=== PATIENT | male | born 1955 | race Two or more races ===

== ENCOUNTER 2018-09-24 13:27 | Inpatient (IN) | payer OTHER ==
--- NOTE | 2018-09-24 14:40 | HP ---
CIWA Score Nausea/Vomitin-Mild Nausea/No Vomiting Muscle Tremors: 4-Moderate,w/Arms Extend Anxiety: 4-Mod. Anxious/Guarded Agitation: 4-Moderately Restless Paroxysmal Sweats: 3 Orientation: 0-Oriented Tacttile Disturbances: 0-None Auditory Disturbances: 0-None Visual Disturbances: 0-None Headache: 0-None Present CIWA-Ar Total Score: 16 - Admission Criteria OASAS Guidelines: Admission for Medically Managed Detox: Requires at least one of the followin. CIWA greater than 12 2. Seizures within the past 24 hours 3. Delirium tremens within the past 24 hours 4. Hallucinations within the past 24 hours 5. Acute intervention needed for co occurring medical disorder 6. Acute intervention needed for co occurring psychiatric disorder 7. Severe withdrawal that cannot be handled at a lower level of care (continued vomiting, continued diarrhea, abnormal vital signs) requiring intravenous medication and/or fluids 8. Admission ROS [facility] Chief Complaint: I want to get clean and sober. Allergies/Adverse Reactions: Allergies Allergy/AdvReac Type Severity Reaction Status Date / Time No Known Allergies Allergy Verified 09/24/18 14:20 History of Present Illness: Pt is a a 63yr old male with a history of alcohol dependence seeking detox for treatment. Pt has a long history of sobriety since 2007 and recently lost family members in a tragic accident and went on a binge. Pt is now ready for detox and lead a sober life. Exam Limitations: No Limitations - Ebola screening Have you traveled outside of the country in the last 21 days: No Have you had contact with anyone from an Ebola affected area: No Have you been sick,other than usual withdrawal symptoms: No Do you have a fever: No - Review of Systems Constitutional: Chills, Diaphoresis, Night Sweats, Changes in sleep, Unintentional Wgt. Loss EENT: reports: Tearing, Hearing Loss (both ears assess; wax noted. will order deberox), Nose Congestion Respiratory: reports: No Symptoms reported Cardiac: reports: No Symptoms Reported GI: reports: Poor Appetite, Poor Fluid Intake, Indigestion : reports: No Symptoms Reported Musculoskeletal: reports: Back Pain, Joint Pain Integumentary: reports: Flushing, Sweating Neuro: reports: Tingling, Tremors Endocrine: reports: Excessive Sweating, Flushing, Intolerance to Cold, Intolerance to Heat Hematology: reports: No Symptoms Reported Psychiatric: reports: No Sypmtoms Reported, Judgement Intact, Orientated x3, Agitated, Anxious Other Systems: Reviewed and Negative Patient History - Patient Medical History Hx Anemia: No Hx Chronic Obstructive Pulmonary Disease (COPD): No Hx Cancer: No Hx Cardiac Disorders: No Hx Congestive Heart Failure: No Hx Hypertension: Yes Hx Hypercholesterolemia: Yes Hx Pacemaker: No HX Cerebrovascular Accident: No Hx Seizures: No Hx Dementia: No Hx Diabetes: No Hx Gastrointestinal Disorders: Yes (GERD) Hx Liver Disease: No Hx Genitourinary Disorders: No Hx Sexually Transmitted Disorders: No Hx Renal Disease (ESRD): No Hx Thyroid Disease: No Hx Human Immunodeficiency Virus (HIV): No (pt denies) Hx Hepatitis C: No (pt denies) Hx Depression: Yes Hx Suicide Attempt: No (pt denies any attempts. ) Hx Bipolar Disorder: No Hx Schizophrenia: No - Patient Surgical History Hx Orthopedic Surgery: Yes (right hip replacement 2013/jaw fx 1979) - PPD History Previous Implant?: Yes Documented Results: Negative w/o proof Implanted On Prior [facility] Admission?: No PPD to be Administered?: Yes - Reproductive History Patient is a Female of Child Bearing Age (11 -55 yrs old): No - Smoking Cessation Smoking history: Former smoker Have you smoked in the past 12 months: No Hx Chewing Tobacco Use: No Initiated information on smoking cessation: No - Substance & Tx. History Hx Alcohol Use: Yes Hx Substance Use: Yes Substance Use Type: Alcohol, Cocaine Hx Substance Use Treatment: Yes (last detox [facility] 3yrs ago) - Substances abused Alcohol Substance route: Oral Frequency: Daily Amount used: 1/5 vodka Age of first use: 26 Date of last use: 09/24/18 Cocaine Substance route: Smoking Frequency: 3-6 times per week Amount used: 1/2 gram Age of first use: 31 Date of last use: 09/23/18 Family Disease History - Family Disease History Family Disease History: Other: Father (), Mother (), Son ( ) Admission Physical Exam BHS - Vital Signs Vital Signs: Vital Signs - 24 hr 09/24/18 14:17 Temperature 98.2 F Pulse Rate 74 Respiratory 18 Rate Blood Pressure 131/77 - Physical General Appearance: Yes: Appropriately Dressed, Moderate Distress, Tremorous, Irritable, Sweating, Anxious HEENTM: Yes: Hearing grossly Normal, Normal Voice, Nasal Congestion, Rhinorrhea Respiratory: Yes: Lungs Clear, Normal Breath Sounds, No Respiratory Distress Neck: Yes: No masses,lesions,Nodules Breast: Yes: Within Normal Limits Cardiology: Yes: Regular Rhythm, Regular Rate, S1, S2 Abdominal: Yes: Normal Bowel Sounds Genitourinary: Yes: Within Normal Limits Back: Yes: Normal Inspection Musculoskeletal: Yes: full range of Motion, Back pain Extremities: Yes: Normal Capillary Refill, Normal Inspection, Non-Tender, Tremors Neurological: Yes: Fully Oriented, Alert, Normal Response Integumentary: Yes: Normal Color, Diaphoresis Lymphatic: Yes: Within Normal Limits - Diagnostic (1) Alcohol dependence with uncomplicated withdrawal Current Visit: Yes Status: Chronic (2) Nicotine dependence Current Visit: Yes Status: Chronic Qualifiers: Nicotine product type: cigarettes Substance use status: uncomplicated Qualified Code(s): F17.210 - Nicotine dependence, cigarettes, uncomplicated (3) Hypertension Current Visit: Yes Status: Chronic Qualifiers: Hypertension type: essential hypertension Qualified Code(s): I10 - Essential (primary) hypertension (4) Hypercholesterolemia Current Visit: Yes Status: Chronic (5) Wax in ear Current Visit: Yes Status: Chronic Cleared for Admission S - Detox or Rehab S Level of Care: Medically Managed Detox Regimen/Protocol: Librium Inpatient Rehab Admission - Rehab Decision to Admit Inpatient rehab admission?: No
[2018-09-24] MEDS ORDERED: traZODone HCL 50 MG TABLET (FP) PO PRN (14:58)
[2018-09-24] MEDS ORDERED: IBUPROFEN 400 MG TABLET (FP) PO PRN (14:58)
[2018-09-24] MEDS ORDERED: MELATONIN 5 MG TABLETS PO PRN (14:58)
[2018-09-24] MEDS ORDERED: ONDANSETRON *ODT* 4 MG TABLET SL PRN (14:58)
[2018-09-24] MEDS ORDERED: MAG HYDROX/AL HYDROX/SIMETH 30 ML UNIT-DOSE CUP PO PRN (14:58)
[2018-09-24] MEDS ORDERED: ACETAMINOPHEN 325 MG TABLET (FP) PO PRN ×2 (14:58)
[2018-09-24] MEDS ORDERED: MAGNESIUM HYDROX 2400MG/30ML ORAL SUSPENSION 30 ML CUP PO PRN (14:58)
[2018-09-24] MEDS ORDERED: MENTHOL/PHENOL 1 EACH UD MM PRN (14:58)
[2018-09-24] MEDS ORDERED: chlordiazePOXIDE HCL 25 MG CAPSULE PO PRN (14:58)
[2018-09-24] MEDS ORDERED: hydrOXYzine PAMOATE 25 MG CAPSULE (FP) PO PRN (14:58)
[2018-09-24] MEDS ORDERED: MAGNESIUM CITRATE 300 ML BOTTLE PO PRN (14:58)
[2018-09-24] MEDS ORDERED: DICYCLOMINE HCL 10 MG CAPSULE PO PRN (14:58)
[2018-09-24] MEDS ORDERED: BISMUTH SUBSALICYLATE 262 MG/15 ML BTL PO PRN (14:58)
[2018-09-24 17:06] LABS: HEMATOCRIT 39.1 % (35.4-49); HEMOGLOBIN 13.2 GM/dL (11.7-16.9); MCH 34.6 pg (25.7-33.7); MCHC 33.8 g/dl (32.0-35.9); MEAN CELL VOLUME 102.4 fl (80-96); MEAN PLT VOLUME 8.8 fl (7.5-11.1); PLATELET COUNT 284 K/MM3 (134-434); RBC 3.81 M/mm3 (4.00-5.60); WHITE BLOOD COUNT 7.9 K/mm3 (4.0-10.0)
[2018-09-24 17:10] LABS: ALBUMIN 3.9 g/dl (3.4-5.0); ALK PHOS 101 U/L (45-117); BILIRUBIN,TOTAL 0.6 mg/dL (0.2-1); BLOOD UREA NITROGEN 10 mg/dL (7-18); CALCIUM 8.9 mg/dL (8.5-10.1); CHLORIDE 105 mmol/L (98-107); CO2 27 mmol/L (21-32); CREATININE 0.8 mg/dL (0.55-1.3); GLUCOSE,RANDOM 109 mg/dL (74-106); SGOT/AST 52 U/L (15-37); SGPT/ALT 40 U/L (13-61); SODIUM 143 mmol/L (136-145); TOT PROT 7.4 g/dl (6.4-8.2)
[2018-09-24 17:12] LABS: ANION GAP 10 MMOL/L (8-16)
[2018-09-24] MEDS: chlordiazePOXIDE HCL 25 MG CAPSULE PO SCH ×2 (17:33→22:20)
[2018-09-24] MEDS: ATORVASTATIN CA 10 MG TABLET (FP) PO SCH (22:20)
[2018-09-24] MEDS: THIAMINE HCL 100 MG TABLET (FP) PO SCH (22:20)
[2018-09-25] MEDS: chlordiazePOXIDE HCL 25 MG CAPSULE PO SCH ×4 (05:06→22:11)
[2018-09-25] MEDS: PANTOPRAZOLE 20 MG TABLET (FP) PO SCH (10:10)
[2018-09-25] MEDS: PRENATAL VITAMINS W/ FOLIC ACID TABLET (FP) PO SCH (10:10)
[2018-09-25] MEDS: HYDROCHLOROTHIAZIDE 25 MG TABLET (FP) PO SCH (10:11)
[2018-09-25] MEDS: BACLOFEN 10 MG TABLET (FP) PO PRN ×2 (10:13→17:53)
--- NOTE | 2018-09-25 11:50 | EKG ---
Test Reason : Blood Pressure : / mmHG Vent. Rate : 075 BPM Atrial Rate : 075 BPM P-R Int : 210 ms QRS Dur : 082 ms QT Int : 402 ms P-R-T Axes : 069 010 039 degrees QTc Int : 448 ms SINUS RHYTHM WITH 1ST DEGREE A-V BLOCK OTHERWISE NORMAL ECG NO PREVIOUS ECGS AVAILABLE Confirmed by ROBERT SANCHEZ, DEITA ([id number]) on 09/25/2018 11:50:09 AM Referred By: Confirmed By:EDITA JONES MD
--- NOTE | 2018-09-25 14:19 | CONSULT ---
[facility] Psychiatric Consult - Data Date of interview: 09/25/18 Admission source: [facility] Identifying data: Patient is a 63 year old single male, father of two, unemployed, homeless, and is supported by [facility]. This is patient's first admission to detox at [facility]. Patient admitted to for alcohol dependence. Substance Abuse History: Smoking Cessation. Smoking history: Former smoker. Have you smoked in the past 12 months: No. Hx Chewing Tobacco Use: No. Initiated information on smoking cessation: No. - Substance & Tx. History. Hx Alcohol Use: Yes. Hx Substance Use: Yes. Substance Use Type: Alcohol, Cocaine. Hx Substance Use Treatment: Yes (last detox [facility] 3yrs ago). - Substances abused. Alcohol. Substance route: Oral. Frequency: Daily. Amount used: 1/5 vodka. Age of first use: 26. Date of last use: 09/24/18. Cocaine. Substance route: Smoking. Frequency: 3-6 times per week. Amount used : 1/2 gram. Age of first use: 31. Date of last use: 09/23/18 Medical History: GERD, right hip replacement 2013/jaw fx 1979) Psychiatric History: Patient denies h/o psychiatric hospitalization, outpatient care and suicide attempt. At present he reports stable mood but is experiencing difficulty sleeping. Physical/Sexual Abuse/Trauma History: denies. Mental Status Exam - Mental Status Exam Alert and Oriented to: Time, Place, Person Cognitive Function: Good Patient Appearance: Well Groomed Mood: Euthymic Affect: Appropriate Patient Behavior: Cooperative Speech Pattern: Appropriate Voice Loudness: Moderately Soft/Quiet Thought Process: Goal Oriented Thought Disorder: Not Present Hallucinations: Denies Suicidal Ideation: Denies Homicidal Ideation: Denies Insight/Judgement: Poor Sleep: Poorly Appetite: Fair Muscle strength/Tone: Normal Gait/Station: Normal Psychiatric Findings - Problem List ([place] 1, 2,3) (1) Alcohol dependence with uncomplicated withdrawal Current Visit: Yes Status: Acute (2) Insomnia Current Visit: Yes Status: Acute - Initial Treatment Plan Initial Treatment Plan: Psychoeducation provided. Detoxification in progress. Will increase trazodone 50mg to 75mg HS prn for insomnia.
[2018-09-25] MEDS ORDERED: diphenhydrAMINE HCL 50 MG CAPSULE PO ONE (15:12)
--- NOTE | 2018-09-25 15:20 | PN ---
[facility] CIWA - CIWA Score Nausea/Vomitin-No Nausea/No Vomiting Muscle Tremors: 3 Anxiety: 3 Agitation: 2 Paroxysmal Sweats: No Perspiration Orientation: 0-Oriented Tacttile Disturbances: 3-Moderate Itch/Numb/Burn Auditory Disturbances: 2-Mild Harshness/Frighten Visual Disturbances: 0-None Headache: 0-None Present CIWA-Ar Total Score: 13 BHS Progress Note (SOAP) Subjective: Body Aches, Anxious, Tremors. Objective: PATIENT A & O X 3, OBSERVED AMBULATING ON UNIT. IN NO ACUTE DISTRESS. 09/25/18 15:15 Vital Signs Temperature 98.6 F 09/25/18 13:43 Pulse Rate 73 09/25/18 13:43 Respiratory Rate 16 09/25/18 13:43 Blood Pressure 110/67 09/25/18 13:43 O2 Sat by Pulse Oximetry (%) Laboratory Tests 09/24/18 09/24/18 09/24/18 15:00 15:00 15:00 WBC 7.9 RBC 3.81 L Hgb 13.2 Hct 39.1 MCV 102.4 H MCH 34.6 H MCHC 33.8 RDW 14.0 Plt Count 284 MPV 8.8 Sodium 143 Potassium 3.0 L Chloride 105 Carbon Dioxide 27 Anion Gap 10 BUN 10 Creatinine 0.8 Creat Clearance w eGFR 97.95 Random Glucose 109 H Calcium 8.9 Total Bilirubin 0.6 AST 52 H ALT 40 Alkaline Phosphatase 101 Total Protein 7.4 Albumin 3.9 RPR Titer Nonreactive LABS NOTED. PATIENT REPORTS ITCHING AFFECTING BILATERAL LEGS AND GROIN AREA FOR LAST FEW WEEKS. PATIENT DENIES ANY KNOWN HISTORY OF RECENT CONTACT WITH ANY UNUSUAL SUBSTANCES / SURFACES. PATIENT DENIES ANY HISTORY OF SIMILAR OCCURRENCE. MULTIPLE PAPULAR, NON-ERYTHEMATOUS BUMPS NOTED ON BILATERAL LEGS. NO UNUSUAL DISCHARGE NOTED AT AFFECTED SITES. 09/25/18 15:16 Assessment: 09/25/18 15:15 WITHDRAWAL SYMPTOMS. URTICARIA (POSSIBLE). HYPOKALEMIA. 09/25/18 15:18 Plan: CONTINUE DETOX. INCREASE DAILY PO FLUID INTAKE. BENADRYL, 50 MG PO X 1 DOSE ORDERED FOR RELIEF OF PRURITUS. BENADRYL, 25 MG PO PRN FOR SUBSEQUENT TREATMENT OF ITCHING. BENADRYL TOPICAL GEL ALSO ORDERED FOR AFFECTED AREAS. K-DUR, 40 MEQ PO X 1 NOW, THEN 20 MEQ PO BID STARTING TOMORROW. REPEAT K LEVEL ON 09/27/2018.
[2018-09-25] MEDS ORDERED: POTASSIUM CHLORIDE TABS 20 MEQ TABLET.ER (FP) PO ONE (15:21)
[2018-09-25] MEDS ORDERED: diphenhydrAMINE HCL 25 MG CAPSULE (FP) PO ONE (16:01)
[2018-09-25] MEDS: ATORVASTATIN CA 10 MG TABLET (FP) PO SCH (22:11)
[2018-09-25] MEDS: traZODone HCL 50 MG TABLET (FP) PO PRN (22:11)
[2018-09-25] MEDS: GABAPENTIN 100 MG CAPSULE (FP) PO SCH (22:12)
[2018-09-25] MEDS: THIAMINE HCL 100 MG TABLET (FP) PO SCH (22:12)
[2018-09-25] MEDS: diphenhydrAMINE HCL 25 MG CAPSULE (FP) PO PRN (22:37)
[2018-09-26] MEDS: chlordiazePOXIDE HCL 25 MG CAPSULE PO SCH ×2 (05:10→10:33)
[2018-09-26] MEDS: GABAPENTIN 100 MG CAPSULE (FP) PO SCH ×3 (05:10→22:19)
[2018-09-26] MEDS: PRENATAL VITAMINS W/ FOLIC ACID TABLET (FP) PO SCH (10:33)
[2018-09-26] MEDS: POTASSIUM CHLORIDE TABS 20 MEQ TABLET.ER (FP) PO SCH ×2 (10:33→17:29)
[2018-09-26] MEDS: HYDROCHLOROTHIAZIDE 25 MG TABLET (FP) PO SCH (10:34)
[2018-09-26] MEDS: PANTOPRAZOLE 20 MG TABLET (FP) PO SCH (10:34)
[2018-09-26] MEDS: diphenhydrAMINE HCL 25 MG CAPSULE (FP) PO PRN ×2 (10:37→17:30)
[2018-09-26] MEDS: LIDOCAINE 5% TOPICAL PATCH TP SCH (11:05)
[2018-09-26] MEDS: NAPROXEN 375 MG TABLET (FP) PO PRN (13:55)
[2018-09-26] MEDS: CARBAMIDE PEROXIDE 6.5% OTIC 15 ML BOTTLE AU SCH ×2 (14:14→22:20)
--- NOTE | 2018-09-26 14:47 | PN ---
S CIWA - CIWA Score Nausea/Vomitin-No Nausea/No Vomiting Muscle Tremors: None Anxiety: 2 Agitation: 0-Normal Activity Paroxysmal Sweats: No Perspiration Orientation: 0-Oriented Tacttile Disturbances: 2-Mild Itch/Numbness/Burn Auditory Disturbances: 1-Very Mild Visual Disturbances: 3-Moderate Sensitivity Headache: 0-None Present CIWA-Ar Total Score: 8 BHS Progress Note (SOAP) Subjective: Body Aches, Interrupted Sleep. Objective: PATIENT A & O X 3, OBSERVED AMBULATING ON UNIT. IN NO ACUTE DISTRESS. 09/26/18 14:44 Vital Signs Temperature 97.4 F L 09/26/18 13:31 Pulse Rate 70 09/26/18 13:31 Respiratory Rate 16 09/26/18 13:31 Blood Pressure 110/66 09/26/18 13:31 O2 Sat by Pulse Oximetry (%) Laboratory Tests 09/24/18 09/24/18 09/24/18 15:00 15:00 15:00 WBC 7.9 RBC 3.81 L Hgb 13.2 Hct 39.1 MCV 102.4 H MCH 34.6 H MCHC 33.8 RDW 14.0 Plt Count 284 MPV 8.8 Sodium 143 Potassium 3.0 L Chloride 105 Carbon Dioxide 27 Anion Gap 10 BUN 10 Creatinine 0.8 Creat Clearance w eGFR 97.95 Random Glucose 109 H Calcium 8.9 Total Bilirubin 0.6 AST 52 H ALT 40 Alkaline Phosphatase 101 Total Protein 7.4 Albumin 3.9 RPR Titer Nonreactive LABS NOTED. Assessment: 09/26/18 14:45 WITHDRAWAL SYMPTOMS. Plan: CONTINUE DETOX. INCREASE DAILY PO FLUID INTAKE. CONTINUE K-DUR. REPEAT K LEVEL TOMORROW AM.
[2018-09-26] MEDS ORDERED: chlordiazePOXIDE HCL 10 MG CAPSULE PO PRN (17:00)
[2018-09-26] MEDS: chlordiazePOXIDE HCL 10 MG CAPSULE PO SCH ×2 (17:28→22:20)
[2018-09-26] MEDS: TIZANIDINE HCL 4 MG TABLET PO PRN (22:18)
[2018-09-26] MEDS: traZODone HCL 50 MG TABLET (FP) PO PRN (22:19)
[2018-09-26] MEDS: LIDOCAINE PATCH REMOVAL MC SCH (22:20)
[2018-09-26] MEDS: THIAMINE HCL 100 MG TABLET (FP) PO SCH (22:20)
[2018-09-26] MEDS: ATORVASTATIN CA 10 MG TABLET (FP) PO SCH (22:20)
[2018-09-27] MEDS: GABAPENTIN 100 MG CAPSULE (FP) PO SCH ×3 (05:29→22:12)
[2018-09-27] MEDS: chlordiazePOXIDE HCL 10 MG CAPSULE PO SCH ×3 (05:29→17:28)
[2018-09-27] MEDS: LIDOCAINE 5% TOPICAL PATCH TP SCH ×2 (10:09→13:00)
[2018-09-27] MEDS: POTASSIUM CHLORIDE TABS 20 MEQ TABLET.ER (FP) PO SCH (10:10)
[2018-09-27] MEDS: PRENATAL VITAMINS W/ FOLIC ACID TABLET (FP) PO SCH (10:10)
[2018-09-27] MEDS: CARBAMIDE PEROXIDE 6.5% OTIC 15 ML BOTTLE AU SCH ×2 (10:10→22:13)
[2018-09-27] MEDS: PANTOPRAZOLE 20 MG TABLET (FP) PO SCH (10:10)
[2018-09-27] MEDS: HYDROCHLOROTHIAZIDE 25 MG TABLET (FP) PO SCH (10:10)
[2018-09-27] MEDS: diphenhydrAMINE HCL 25 MG CAPSULE (FP) PO PRN ×3 (10:11→23:26)
[2018-09-27] MEDS: TIZANIDINE HCL 4 MG TABLET PO PRN ×2 (10:12→22:18)
--- NOTE | 2018-09-27 13:34 | PN ---
BHS Progress Note (SOAP) Subjective: Anxious, Body Aches. Objective: PATIENT A & O X 3, OBSERVED AMBULATING ON UNIT. IN NO ACUTE DISTRESS. 09/27/18 13:29 Vital Signs Temperature 97.6 F 09/27/18 13:10 Pulse Rate 55 L 09/27/18 13:10 Respiratory Rate 18 09/27/18 13:10 Blood Pressure 95/64 09/27/18 13:10 O2 Sat by Pulse Oximetry (%) Laboratory Tests 09/24/18 09/24/18 09/24/18 15:00 15:00 15:00 WBC 7.9 RBC 3.81 L Hgb 13.2 Hct 39.1 MCV 102.4 H MCH 34.6 H MCHC 33.8 RDW 14.0 Plt Count 284 MPV 8.8 Sodium 143 Potassium 3.0 L Chloride 105 Carbon Dioxide 27 Anion Gap 10 BUN 10 Creatinine 0.8 Creat Clearance w eGFR 97.95 Random Glucose 109 H Calcium 8.9 Total Bilirubin 0.6 AST 52 H ALT 40 Alkaline Phosphatase 101 Total Protein 7.4 Albumin 3.9 RPR Titer Nonreactive 09/27/18 10:15 WBC RBC Hgb Hct MCV MCH MCHC RDW Plt Count MPV Sodium Potassium 4.1 Chloride Carbon Dioxide Anion Gap BUN Creatinine Creat Clearance w eGFR Random Glucose Calcium Total Bilirubin AST ALT Alkaline Phosphatase Total Protein Albumin RPR Titer LABS NOTED. RESULT OF REPEAT K LEVEL NOTED. K LEVEL NOW NOTED TO BE WITHIN NORMAL RANGE. D/C K-DUR. Assessment: 09/27/18 13:30 WITHDRAWAL SYMPTOMS. Plan: CONTINUE DETOX. PRN TIZANIDINE PO FOR BODY ACHES / MUSCLE SPASMS. LIDODERM PATCHES FOR LEFT KNEE AND FOR LOWER BACK AREA.
[2018-09-27] MEDS ORDERED: LIDOCAINE PATCH REMOVAL MC SCH (22:00)
[2018-09-27] MEDS: ATORVASTATIN CA 10 MG TABLET (FP) PO SCH (22:12)
[2018-09-27] MEDS: THIAMINE HCL 100 MG TABLET (FP) PO SCH (22:12)
[2018-09-27] MEDS: LIDOCAINE PATCH REMOVAL MC SCH (22:13)
[2018-09-27] MEDS: traZODone HCL 50 MG TABLET (FP) PO PRN (22:16)
[2018-09-27] MEDS: NAPROXEN 375 MG TABLET (FP) PO PRN (22:17)
[2018-09-28] MEDS: chlordiazePOXIDE HCL 10 MG CAPSULE PO SCH (05:52)
[2018-09-28] MEDS: GABAPENTIN 100 MG CAPSULE (FP) PO SCH (05:52)
[2018-09-28 09:26] VITALS: BP 98/61; PULSE 67; TEMP 96.1
--- NOTE | 2018-09-28 09:48 | DS ---
[facility] Detox Discharge Summary Admission Date: 09/24/18 Discharge Date: 09/28/18 - History Present History: Alcohol Dependence Additional Comments: 63 years old male admitted on 09/24/18 for alcohol withdrawal stabilization completed alcohol detox regimen [facility] Pertinent Past History: keep medication list in wallet update medication list when change medication bring in medication list and lab report to follow up appointment medication adherence - Physical Exam Results Vital Signs: Vital Signs Temperature 96.1 F L 09/28/18 09:24 Pulse Rate 67 09/28/18 09:24 Respiratory Rate 18 09/28/18 09:24 Blood Pressure 98/61 09/28/18 09:24 O2 Sat by Pulse Oximetry (%) Pertinent Admission Physical Exam Findings: alcohol withdrawal sx Laboratory Last Values WBC 7.9 K/mm3 (4.0-10.0) 09/24/18 15:00 RBC 3.81 M/mm3 (4.00-5.60) L 09/24/18 15:00 Hgb 13.2 GM/dL (11.7-16.9) 09/24/18 15:00 Hct 39.1 % (35.4-49) 09/24/18 15:00 MCV 102.4 fl (80-96) H 09/24/18 15:00 MCH 34.6 pg (25.7-33.7) H 09/24/18 15:00 MCHC 33.8 g/dl (32.0-35.9) 09/24/18 15:00 RDW 14.0 % (11.9-15.9) 09/24/18 15:00 Plt Count 284 K/MM3 (134-434) 09/24/18 15:00 MPV 8.8 fl (7.5-11.1) 09/24/18 15:00 Sodium 143 mmol/L (136-145) 09/24/18 15:00 Potassium 4.1 mmol/L (3.5-5.1) 09/27/18 10:15 Chloride 105 mmol/L (98-107) 09/24/18 15:00 Carbon Dioxide 27 mmol/L (21-32) 09/24/18 15:00 Anion Gap 10 MMOL/L (8-16) 09/24/18 15:00 BUN 10 mg/dL (7-18) 09/24/18 15:00 Creatinine 0.8 mg/dL (0.55-1.3) 09/24/18 15:00 Creat Clearance w eGFR 97.95 (>60) 09/24/18 15:00 Random Glucose 109 mg/dL (74-106) H 09/24/18 15:00 Calcium 8.9 mg/dL (8.5-10.1) 09/24/18 15:00 Total Bilirubin 0.6 mg/dL (0.2-1) 09/24/18 15:00 AST 52 U/L (15-37) H 09/24/18 15:00 ALT 40 U/L (13-61) 09/24/18 15:00 Alkaline Phosphatase 101 U/L (45-117) 09/24/18 15:00 Total Protein 7.4 g/dl (6.4-8.2) 09/24/18 15:00 Albumin 3.9 g/dl (3.4-5.0) 09/24/18 15:00 RPR Titer Nonreactive (NONREACTIVE) 09/24/18 15:00 lab noted - Treatment Hospital Course: Detox Protocol Followed, Detoxed Safely, Responded well, Discharged Condition Good, Rehab Referral Accepted Patient has Accepted a Rehab Referral to: [facility] - Medication Discharge Medications: Ambulatory Orders Atorvastatin Calcium [Lipitor] 10 mg PO DAILY 09/24/18 Diphenhydramine HCl [Benadryl Capsule -] 25 mg PO Q6H 09/24/18 Gabapentin [Neurontin -] 100 mg PO Q8H 09/24/18 Hydrochlorothiazide 25 mg PO DAILY 09/24/18 Pantoprazole Sodium [Protonix -] 20 mg PO DAILY 09/24/18 Tizanidine HCl 2 mg PO PRN 09/24/18 - Diagnosis (1) Alcohol dependence with uncomplicated withdrawal Current Visit: Yes Status: Acute (2) Hypercholesterolemia Current Visit: Yes Status: Chronic (3) Hypertension Current Visit: Yes Status: Chronic Qualifiers: Hypertension type: essential hypertension Qualified Code(s): I10 - Essential (primary) hypertension (4) Nicotine dependence Current Visit: Yes Status: Acute Qualifiers: Nicotine product type: cigarettes Substance use status: in withdrawal Qualified Code(s): F17.213 - Nicotine dependence, cigarettes, with withdrawal - AMA Did Patient Leave Against Medical Advice: No
[2018-09-28] MEDS: HYDROCHLOROTHIAZIDE 25 MG TABLET (FP) PO SCH (10:07)
[2018-09-28] MEDS: LIDOCAINE 5% TOPICAL PATCH TP SCH ×2 (10:07)
[2018-09-28] MEDS: PRENATAL VITAMINS W/ FOLIC ACID TABLET (FP) PO SCH (10:07)
[2018-09-28] MEDS: CARBAMIDE PEROXIDE 6.5% OTIC 15 ML BOTTLE AU SCH (10:08)
== END 2018-09-28 12:50 | disposition home or self-care (01) | DRG 774 ==
LOC: YASAS 13:27 → Y3N 15:13
PROVIDERS: ADMIT Surgery; ATTEND Surgery
PROC: HZ2ZZZZ Detoxification Services for Substance Abuse Treatment (ICD-10-PCS; principal; 2018-09-24)
DX: F10.230 Alcohol dependence with withdrawal, uncomplicated (principal); F14.10 Cocaine abuse, uncomplicated; F17.210 Nicotine dependence, cigarettes, uncomplicated; I10 Essential (primary) hypertension; E78.00 Pure hypercholesterolemia, unspecified; E87.6 Hypokalemia; H61.23 Impacted cerumen, bilateral; Z96.641 Presence of right artificial hip joint
CPT/HCPCS: 36415; 80053; 84132; 85027; 86593; 93005; 93010; J0475

== ENCOUNTER 2019-05-25 13:43 | Inpatient (IN) | payer OTHER ==
[2019-05-25 15:51] VITALS: BMI 26.4
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
--- NOTE | 2019-05-25 17:26 | PN ---
Teaching Attending Note Name of Resident: Yenny Romero ATTENDING PHYSICIAN STATEMENT I saw and evaluated the patient. I reviewed the resident's note and discussed the case with the resident. I agree with the resident's findings and plan as documented. SUBJECTIVE: 64 yo here for AUD. Last here 6 months ago completed detox. Pt states he relapsed Drinks about 1 pint/day. 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 Says he is tired and wants to be sober. LIBAN-0.086, Utox- pos for cocaine OBJECTIVE: Vital Signs - 24 hr 05/25/19 15:45 Temperature 97.0 F L Pulse Rate 75 Respiratory 20 Rate Blood Pressure 101/61 tremulous alert and oriented ASSESSMENT AND PLAN: AUD- benzo based detox protocol
[2019-05-25] MEDS ORDERED: BISMUTH SUBSALICYLATE 524 MG/30 ML UD PO PRN (17:42)
[2019-05-25] MEDS ORDERED: MENTHOL/PHENOL 1 EACH UD MM PRN (17:42)
[2019-05-25] MEDS ORDERED: MAGNESIUM HYDROX 2400MG/30ML ORAL SUSPENSION 30 ML CUP PO PRN (17:42)
[2019-05-25] MEDS ORDERED: MAGNESIUM CITRATE 300 ML BOTTLE PO PRN (17:42)
[2019-05-25] MEDS ORDERED: METHOCARBAMOL 500 MG TABLET PO PRN (17:42)
[2019-05-25] MEDS ORDERED: hydrOXYzine PAMOATE 25 MG CAPSULE (FP) PO PRN (17:42)
[2019-05-25] MEDS ORDERED: ACETAMINOPHEN 325 MG TABLET (FP) PO PRN (17:42)
[2019-05-25] MEDS ORDERED: diazePAM 5 MG TABLET PO PRN (17:42)
[2019-05-25] MEDS ORDERED: MAG HYDROX/AL HYDROX/SIMETH 30 ML UNIT-DOSE CUP PO PRN (17:42)
[2019-05-25] MEDS ORDERED: IBUPROFEN 400 MG TABLET (FP) PO PRN (17:42)
[2019-05-25] MEDS ORDERED: diazePAM 5 MG TABLET PO ONE (18:00)
[2019-05-25] MEDS: MELATONIN 5 MG TABLETS PO PRN (22:07)
[2019-05-25] MEDS: diazePAM 5 MG TABLET PO SCH (22:07)
[2019-05-25] MEDS: THIAMINE HCL 100 MG TABLET (FP) PO SCH (22:07)
[2019-05-26] MEDS: diazePAM 5 MG TABLET PO SCH ×3 (05:04→21:36)
[2019-05-26] MEDS ORDERED: HYDROCHLOROTHIAZIDE 25 MG TABLET (FP) PO SCH (10:00)
--- NOTE | 2019-05-26 10:08 | PN ---
S CIWA - CIWA Score Nausea/Vomitin-Mild Nausea/No Vomiting Muscle Tremors: 2 Anxiety: 3 Agitation: 1-Slight > Activity Paroxysmal Sweats: 2 Orientation: 1-Uncertain about Date (date of week) Tacttile Disturbances: 1-Very Mild Itch/Numbness Auditory Disturbances: 1-Very Mild Visual Disturbances: 0-None Headache: 1-Very Mild CIWA-Ar Total Score: 13 BHS Progress Note (SOAP) Subjective: 64 years old male admitted on 05/25/19 for alcohol withdrawal sx management treated with valium detox regimen ambulating with cane steady gait from bed to bathroom sleep better at night discuss behavior therapy as well as psychosocial therapy Objective: 05/26/19 10:07 Vital Signs Temperature 96.5 F L 05/26/19 09:12 Pulse Rate 66 05/26/19 09:12 Respiratory Rate 18 05/26/19 09:12 Blood Pressure 132/66 05/26/19 09:12 O2 Sat by Pulse Oximetry (%) 05/26/19 10:07 lab pending Assessment: 05/26/19 10:07 alcohol withdrawal sx Plan: continue valium detox regimen
[2019-05-26] MEDS: PRENATAL VITAMINS W/ FOLIC ACID TABLET (FP) PO SCH (10:09)
[2019-05-26] MEDS: ATORVASTATIN CA 10 MG TABLET (FP) PO SCH (10:09)
[2019-05-26] MEDS: ACETAMINOPHEN 325 MG TABLET (FP) PO PRN (10:11)
[2019-05-26 10:17] LABS: HEMATOCRIT 36.9 % (35.4-49); HEMOGLOBIN 12.4 GM/dL (11.7-16.9); MCH 34.6 pg (25.7-33.7); MCHC 33.6 g/dl (32.0-35.9); MEAN CELL VOLUME 102.8 fl (80-96); MEAN PLT VOLUME 8.1 fl (7.5-11.1); PLATELET COUNT 327 K/MM3 (134-434); RBC 3.59 M/mm3 (4.00-5.60); RDW 13.7 % (11.9-15.9); WHITE BLOOD COUNT 5.6 K/mm3 (4.0-10.0)
[2019-05-26 10:44] LABS: ALBUMIN 3.1 g/dl (3.4-5.0); BILIRUBIN,TOTAL 0.6 mg/dL (0.2-1); BLOOD UREA NITROGEN 10.3 mg/dL (7-18); CREATININE 0.9 mg/dL (0.55-1.3); TOT PROT 6.1 g/dl (6.4-8.2)
[2019-05-26] MEDS: THIAMINE HCL 100 MG TABLET (FP) PO SCH (21:36)
[2019-05-26] MEDS: MELATONIN 5 MG TABLETS PO PRN (21:36)
[2019-05-27] MEDS: diazePAM 5 MG TABLET PO SCH ×2 (05:26→17:38)
[2019-05-27] MEDS: ACETAMINOPHEN 325 MG TABLET (FP) PO PRN (05:28)
[2019-05-27] MEDS: PRENATAL VITAMINS W/ FOLIC ACID TABLET (FP) PO SCH (10:08)
[2019-05-27] MEDS: ATORVASTATIN CA 10 MG TABLET (FP) PO SCH (10:08)
--- NOTE | 2019-05-27 11:24 | PN ---
S CIWA - CIWA Score Nausea/Vomitin-No Nausea/No Vomiting Muscle Tremors: 2 Anxiety: 2 Agitation: 2 Paroxysmal Sweats: 1-Minimal Palms Moist Orientation: 0-Oriented Tacttile Disturbances: 0-None Auditory Disturbances: 0-None Visual Disturbances: 0-None Headache: 1-Very Mild CIWA-Ar Total Score: 8 S Progress Note (SOAP) Subjective: 64 YEARS OLD MALE ADMITTED ON 05/25/19 FOR ALCOHOL WITHDRAWAL SX MANAGEMENT TREATED WITH VALIUM DETOX REGIMEN FEELING BETTER SLEPT THROUGH THE NIGHT LESS TREMOR MILD ANXIETY Objective: 05/27/19 11:23 Vital Signs Temperature 96.6 F L 05/27/19 09:15 Pulse Rate 62 05/27/19 09:15 Respiratory Rate 18 05/27/19 09:15 Blood Pressure 118/72 05/27/19 09:15 O2 Sat by Pulse Oximetry (%) Laboratory Last Values WBC 5.6 K/mm3 (4.0-10.0) 05/26/19 08:00 RBC 3.59 M/mm3 (4.00-5.60) L 05/26/19 08:00 Hgb 12.4 GM/dL (11.7-16.9) 05/26/19 08:00 Hct 36.9 % (35.4-49) 05/26/19 08:00 MCV 102.8 fl (80-96) H 05/26/19 08:00 MCH 34.6 pg (25.7-33.7) H 05/26/19 08:00 MCHC 33.6 g/dl (32.0-35.9) 05/26/19 08:00 RDW 13.7 % (11.9-15.9) 05/26/19 08:00 Plt Count 327 K/MM3 (134-434) 05/26/19 08:00 MPV 8.1 fl (7.5-11.1) 05/26/19 08:00 Sodium 146 mmol/L (136-145) H 05/26/19 08:00 Potassium 4.0 mmol/L (3.5-5.1) 05/26/19 08:00 Chloride 111 mmol/L (98-107) H 05/26/19 08:00 Carbon Dioxide 28 mmol/L (21-32) 05/26/19 08:00 Anion Gap 7 MMOL/L (8-16) L 05/26/19 08:00 BUN 10.3 mg/dL (7-18) 05/26/19 08:00 Creatinine 0.9 mg/dL (0.55-1.3) 05/26/19 08:00 Est GFR (CKD-EPI)AfAm 104.98 05/26/19 08:00 Est GFR (CKD-EPI)NonAf 90.58 05/26/19 08:00 Random Glucose 81 mg/dL (74-106) 05/26/19 08:00 Calcium 9.0 mg/dL (8.5-10.1) 05/26/19 08:00 Total Bilirubin 0.6 mg/dL (0.2-1) 05/26/19 08:00 AST 25 U/L (15-37) 05/26/19 08:00 ALT 23 U/L (13-61) 05/26/19 08:00 Alkaline Phosphatase 71 U/L (45-117) 05/26/19 08:00 Total Protein 6.1 g/dl (6.4-8.2) L 05/26/19 08:00 Albumin 3.1 g/dl (3.4-5.0) L 05/26/19 08:00 RPR Titer Nonreactive (NONREACTIVE) 05/26/19 08:00 LAB NOTED Assessment: 05/27/19 11:23 ALCOHOL WITHDRAWAL SX Plan: CONTINUE VALIUM DETOX REGIMEN
[2019-05-27] MEDS: MELATONIN 5 MG TABLETS PO PRN (21:40)
[2019-05-27] MEDS: THIAMINE HCL 100 MG TABLET (FP) PO SCH (21:40)
[2019-05-28] MEDS ORDERED: diazePAM 5 MG TABLET PO ONE (06:00)
[2019-05-28 09:08] VITALS: BP 136/76; PULSE 68; TEMP 96
--- NOTE | 2019-05-28 10:33 | DS ---
[facility] Detox Discharge Summary Admission Date: 05/25/19 Discharge Date: 05/28/19 - History Present History: Alcohol Dependence Additional Comments: 64 years old male admitted on 05/25/19 for alcohol withdrawal sx management treated with valium detox regimen patient tolerated well alert oriented x 3 showered respiratory clear lung bilaterally on auscultation skin warm dry extremities full range of motion - Physical Exam Results Vital Signs: Vital Signs Temperature 96.0 F L 05/28/19 09:08 Pulse Rate 68 05/28/19 09:08 Respiratory Rate 18 05/28/19 09:08 Blood Pressure 136/76 05/28/19 09:08 O2 Sat by Pulse Oximetry (%) Pertinent Admission Physical Exam Findings: alcohol withdrawal sx Laboratory Last Values WBC 5.6 K/mm3 (4.0-10.0) 05/26/19 08:00 RBC 3.59 M/mm3 (4.00-5.60) L 05/26/19 08:00 Hgb 12.4 GM/dL (11.7-16.9) 05/26/19 08:00 Hct 36.9 % (35.4-49) 05/26/19 08:00 MCV 102.8 fl (80-96) H 05/26/19 08:00 MCH 34.6 pg (25.7-33.7) H 05/26/19 08:00 MCHC 33.6 g/dl (32.0-35.9) 05/26/19 08:00 RDW 13.7 % (11.9-15.9) 05/26/19 08:00 Plt Count 327 K/MM3 (134-434) 05/26/19 08:00 MPV 8.1 fl (7.5-11.1) 05/26/19 08:00 Sodium 146 mmol/L (136-145) H 05/26/19 08:00 Potassium 4.0 mmol/L (3.5-5.1) 05/26/19 08:00 Chloride 111 mmol/L (98-107) H 05/26/19 08:00 Carbon Dioxide 28 mmol/L (21-32) 05/26/19 08:00 Anion Gap 7 MMOL/L (8-16) L 05/26/19 08:00 BUN 10.3 mg/dL (7-18) 05/26/19 08:00 Creatinine 0.9 mg/dL (0.55-1.3) 05/26/19 08:00 Est GFR (CKD-EPI)AfAm 104.98 05/26/19 08:00 Est GFR (CKD-EPI)NonAf 90.58 05/26/19 08:00 Random Glucose 81 mg/dL (74-106) 05/26/19 08:00 Calcium 9.0 mg/dL (8.5-10.1) 05/26/19 08:00 Total Bilirubin 0.6 mg/dL (0.2-1) 05/26/19 08:00 AST 25 U/L (15-37) 05/26/19 08:00 ALT 23 U/L (13-61) 05/26/19 08:00 Alkaline Phosphatase 71 U/L (45-117) 05/26/19 08:00 Total Protein 6.1 g/dl (6.4-8.2) L 05/26/19 08:00 Albumin 3.1 g/dl (3.4-5.0) L 05/26/19 08:00 RPR Titer Nonreactive (NONREACTIVE) 05/26/19 08:00 lab noted - Treatment Hospital Course: Detox Protocol Followed, Detoxed Safely, Responded well, Discharged Condition Good, Rehab Referral Accepted Patient has [facility]ed [facility] - Medication Discharge Medications: Ambulatory Orders Atorvastatin Calcium [Lipitor] 10 mg PO DAILY 09/24/18 Hydrochlorothiazide 25 mg PO DAILY 09/24/18 - Diagnosis (1) Alcohol dependence with uncomplicated withdrawal Current Visit: Yes Status: Acute (2) Nicotine dependence Current Visit: Yes Status: Acute Qualifiers: Nicotine product type: cigarettes Substance use status: in withdrawal Qualified Code(s): F17.213 - Nicotine dependence, cigarettes, with withdrawal (3) Hypercholesterolemia Current Visit: Yes Status: Chronic (4) Hypertension Current Visit: Yes Status: Chronic Qualifiers: Hypertension type: essential hypertension Qualified Code(s): I10 - Essential (primary) hypertension - AMA Did Patient Leave Against Medical Advice: No CIWA Score - CIWA Score Nausea/Vomitin-No Nausea/No Vomiting Muscle Tremors: 1-None Visible, but [place] Anxiety: 1-Mildly Anxious Agitation: 1-Slight > Activity Paroxysmal Sweats: 1-Minimal Palms Moist Orientation: 0-Oriented Tacttile Disturbances: 0-None Auditory Disturbances: 0-None Visual Disturbances: 0-None Headache: 1-Very Mild CIWA-Ar Total Score: 5
== END 2019-05-28 10:39 | disposition home or self-care (01) | DRG 774 ==
LOC: YASAS 13:43 → Y3N 17:18
PROVIDERS: ADMIT Allergy & Immunology; ATTEND Allergy & Immunology
PROC: HZ2ZZZZ Detoxification Services for Substance Abuse Treatment (ICD-10-PCS; principal; 2019-05-25)
DX: F10.230 Alcohol dependence with withdrawal, uncomplicated (principal); F14.20 Cocaine dependence, uncomplicated; I10 Essential (primary) hypertension; E78.00 Pure hypercholesterolemia, unspecified; K21.9 Gastro-esophageal reflux disease without esophagitis; Z87.891 Personal history of nicotine dependence; Z96.641 Presence of right artificial hip joint; Z99.89 Dependence on other enabling machines and devices; Z88.6 Allergy status to analgesic agent
CPT/HCPCS: 36415; 80053; 85027; 86593

== ENCOUNTER 2019-08-27 13:52 | Inpatient (IN) | payer OTHER ==
--- NOTE | 2019-08-27 14:15 | BHS.RME ---
Substance Use & Tx History - Substance Use History Alcohol Substance amount: 1.5 pints, beers 5 cans every 2 weeks Frequency of use: Daily Substance route: Oral Date of Last Use: 08/26/19 Cocaine (Powder) Substance amount: 0.5 gram Frequency of use: More than 3 times per week Substance route: Inhalation (ex: sniffing or snorting) Date of Last Use: 08/26/19 Physical/Psych/Mental Status - Behavior General Behavior: Increased activity (restlessness, agitation) - Cooperativeness Cooperativeness: Cooperative - Thinking Thought Processes: Tight Thought content: Future oriented - Physical Health Problems Is patient presently having any pain?: No Does patient presently have any injuries (include location): No Does patient currently have a fever: No Is patient : No CIWA Nausea/Vomitin-No Nausea/No Vomiting Muscle Tremors: 2 Anxiety: 1-Mildly Anxious Agitation: 1-Slight > Activity Paroxysmal Sweats: No Perspiration Orientation: 0-Oriented Tacttile Disturbances: 0-None Auditory Disturbances: 2-Mild Harshness/Frighten Visual Disturbances: 0-None Headache: 0-None Present (Meets criteria due to comorbid: poor recovery environment and high risk relapse.) CIWA-Ar Total Score: 6
[2019-08-27 15:53] VITALS: BMI 27.0
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
[2019-08-27] MEDS ORDERED: P-EPHED 60MG/TRIPROLIDI 2.5MG TABLET PO PRN (16:26)
[2019-08-27] MEDS ORDERED: MAGNESIUM CITRATE 300 ML BOTTLE PO PRN (16:26)
[2019-08-27] MEDS ORDERED: BISMUTH SUBSALICYLATE 524 MG/30 ML UD PO PRN (16:26)
[2019-08-27] MEDS ORDERED: MAG HYDROX/AL HYDROX/SIMETH 30 ML UNIT-DOSE CUP PO PRN (16:26)
[2019-08-27] MEDS ORDERED: MENTHOL/PHENOL 1 EACH UD MM PRN (16:26)
[2019-08-27] MEDS ORDERED: guaiFENesin 200 MG/10 ML 10 ML UNIT-DOSE CUPS PO PRN (16:26)
[2019-08-27] MEDS ORDERED: ACETAMINOPHEN 325 MG TABLET (FP) PO PRN (16:26)
[2019-08-27] MEDS ORDERED: METHOCARBAMOL 500 MG TABLET PO PRN (16:26)
[2019-08-27] MEDS ORDERED: NICOTINE POLACRILEX 2 MG GUM BUC PRN (16:26)
[2019-08-27] MEDS ORDERED: MAGNESIUM HYDROX 2400MG/30ML ORAL SUSPENSION 30 ML CUP PO PRN (16:26)
[2019-08-27] MEDS ORDERED: DICYCLOMINE HCL 10 MG CAPSULE PO PRN (16:26)
[2019-08-27] MEDS ORDERED: LORazepam 1 MG TABLET PO PRN (16:26)
[2019-08-27] MEDS ORDERED: ONDANSETRON *ODT* 4 MG TABLET SL ONE (17:00)
[2019-08-27] MEDS ORDERED: hydrOXYzine PAMOATE 25 MG CAPSULE (FP) PO SCH (18:00)
[2019-08-27] MEDS ORDERED: hydrOXYzine PAMOATE 25 MG CAPSULE (FP) PO PRN (18:41)
[2019-08-27] MEDS ORDERED: MELATONIN 5 MG TABLETS PO SCH (22:00)
[2019-08-27] MEDS: LORazepam 2 MG TABLET PO SCH (22:06)
[2019-08-27] MEDS: MELATONIN 5 MG TABLETS PO PRN (22:06)
[2019-08-27] MEDS: THIAMINE HCL 100 MG TABLET (FP) PO SCH (22:06)
[2019-08-28] MEDS: LORazepam 2 MG TABLET PO SCH ×4 (06:03→22:27)
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
[2019-08-28 10:30] LABS: HEMATOCRIT 36.4 % (35.4-49); MCH 33.3 pg (25.7-33.7); MCHC 33.1 g/dl (32.0-35.9); MEAN CELL VOLUME 100.6 fl (80-96); MEAN PLT VOLUME 8.2 fl (7.5-11.1); PLATELET COUNT 333 K/MM3 (134-434); RBC 3.61 M/mm3 (4.00-5.60); RDW 13.3 % (11.9-15.9); WHITE BLOOD COUNT 6.2 K/mm3 (4.0-10.0)
[2019-08-28] MEDS: PRENATAL VITAMINS W/ FOLIC ACID TABLET (FP) PO SCH (10:38)
[2019-08-28 10:53] LABS: ALBUMIN 3.3 g/dl (3.4-5.0); BLOOD UREA NITROGEN 12.5 mg/dL (7-18); CALCIUM 8.8 mg/dL (8.5-10.1); CREATININE 0.7 mg/dL (0.55-1.3); POTASSIUM 3.8 mmol/L (3.5-5.1); TOT PROT 6.3 g/dl (6.4-8.2)
--- NOTE | 2019-08-28 10:58 | EKG ---
Test Reason : Blood Pressure : / mmHG Vent. Rate : 082 BPM Atrial Rate : 082 BPM P-R Int : 186 ms QRS Dur : 076 ms QT Int : 370 ms P-R-T Axes : 068 005 051 degrees QTc Int : 432 ms NORMAL SINUS RHYTHM NONSPECIFIC ST ABNORMALITY WHEN COMPARED WITH ECG OF 24-SEP-2018 14:21, NO SIGNIFICANT CHANGE WAS FOUND Confirmed by LURDES SAENZ MD ([id number]) on 08/28/2019 10:57:35 AM Referred By: ANNIKA Confirmed By:LURDES SAENZ MD
--- NOTE | 2019-08-28 11:31 | PN ---
S CIWA - CIWA Score Nausea/Vomitin Muscle Tremors: 2 Anxiety: 2 Agitation: 2 Paroxysmal Sweats: 1-Minimal Palms Moist Orientation: 0-Oriented Tacttile Disturbances: 1-Very Mild Itch/Numbness Auditory Disturbances: 0-None Visual Disturbances: 0-None Headache: 2-Mild CIWA-Ar Total Score: 12 BHS Progress Note (SOAP) Subjective: alert,irritable,anxious,interrupted sleep,pain in the body,tremor Objective: 08/28/19 11:30 Vital Signs Temperature 97.3 F L 08/28/19 09:21 Pulse Rate 66 08/28/19 09:21 Respiratory Rate 20 08/28/19 09:21 Blood Pressure 126/71 08/28/19 09:21 O2 Sat by Pulse Oximetry (%) Laboratory Last Values WBC 6.2 K/mm3 (4.0-10.0) 08/28/19 07:45 RBC 3.61 M/mm3 (4.00-5.60) L 08/28/19 07:45 Hgb 12.0 GM/dL (11.7-16.9) 08/28/19 07:45 Hct 36.4 % (35.4-49) 08/28/19 07:45 MCV 100.6 fl (80-96) H 08/28/19 07:45 MCH 33.3 pg (25.7-33.7) 08/28/19 07:45 MCHC 33.1 g/dl (32.0-35.9) 08/28/19 07:45 RDW 13.3 % (11.9-15.9) 08/28/19 07:45 Plt Count 333 K/MM3 (134-434) 08/28/19 07:45 MPV 8.2 fl (7.5-11.1) 08/28/19 07:45 Sodium 143 mmol/L (136-145) 08/28/19 07:45 Potassium 3.8 mmol/L (3.5-5.1) 08/28/19 07:45 Chloride 108 mmol/L (98-107) H 08/28/19 07:45 Carbon Dioxide 30 mmol/L (21-32) 08/28/19 07:45 Anion Gap 5 MMOL/L (8-16) L 08/28/19 07:45 BUN 12.5 mg/dL (7-18) 08/28/19 07:45 Creatinine 0.7 mg/dL (0.55-1.3) 08/28/19 07:45 Est GFR (CKD-EPI)AfAm 116.40 08/28/19 07:45 Est GFR (CKD-EPI)NonAf 100.43 08/28/19 07:45 Random Glucose 84 mg/dL (74-106) 08/28/19 07:45 Calcium 8.8 mg/dL (8.5-10.1) 08/28/19 07:45 Total Bilirubin 1.0 mg/dL (0.2-1) 08/28/19 07:45 AST 30 U/L (15-37) 08/28/19 07:45 ALT 31 U/L (13-61) 08/28/19 07:45 Alkaline Phosphatase 85 U/L (45-117) 08/28/19 07:45 Total Protein 6.3 g/dl (6.4-8.2) L 08/28/19 07:45 Albumin 3.3 g/dl (3.4-5.0) L 08/28/19 07:45 RPR Titer Nonreactive (NONREACTIVE) 08/28/19 07:45 Assessment: 08/28/19 11:31 withdrawal symptom Plan: continue detox librium regimen
[2019-08-28] MEDS: MELATONIN 5 MG TABLETS PO PRN (22:27)
[2019-08-28] MEDS: THIAMINE HCL 100 MG TABLET (FP) PO SCH (22:27)
[2019-08-28] MEDS: ACETAMINOPHEN 325 MG TABLET (FP) PO PRN (22:28)
[2019-08-29] MEDS: LORazepam 1 MG TABLET PO SCH ×4 (06:22→22:28)
[2019-08-29] MEDS: ACETAMINOPHEN 325 MG TABLET (FP) PO PRN ×2 (08:58→16:43)
[2019-08-29] MEDS: PRENATAL VITAMINS W/ FOLIC ACID TABLET (FP) PO SCH (10:18)
--- NOTE | 2019-08-29 11:57 | PN ---
[facility] CIWA - CIWA Score Nausea/Vomitin-Mild Nausea/No Vomiting Muscle Tremors: 2 Anxiety: 2 Agitation: 2 Paroxysmal Sweats: No Perspiration Orientation: 0-Oriented Tacttile Disturbances: 1-Very Mild Itch/Numbness Auditory Disturbances: 0-None Visual Disturbances: 0-None Headache: 1-Very Mild CIWA-Ar Total Score: 9 S Progress Note (SOAP) Subjective: alert,irritable,anxious,interrupted sleep,tremor,pain in the body Objective: 08/29/19 11:56 Vital Signs Temperature 97.9 F 08/29/19 08:35 Pulse Rate 60 08/29/19 08:35 Respiratory Rate 18 08/29/19 08:35 Blood Pressure 131/76 08/29/19 08:35 O2 Sat by Pulse Oximetry (%) Laboratory Last Values WBC 6.2 K/mm3 (4.0-10.0) 08/28/19 07:45 RBC 3.61 M/mm3 (4.00-5.60) L 08/28/19 07:45 Hgb 12.0 GM/dL (11.7-16.9) 08/28/19 07:45 Hct 36.4 % (35.4-49) 08/28/19 07:45 MCV 100.6 fl (80-96) H 08/28/19 07:45 MCH 33.3 pg (25.7-33.7) 08/28/19 07:45 MCHC 33.1 g/dl (32.0-35.9) 08/28/19 07:45 RDW 13.3 % (11.9-15.9) 08/28/19 07:45 Plt Count 333 K/MM3 (134-434) 08/28/19 07:45 MPV 8.2 fl (7.5-11.1) 08/28/19 07:45 Sodium 143 mmol/L (136-145) 08/28/19 07:45 Potassium 3.8 mmol/L (3.5-5.1) 08/28/19 07:45 Chloride 108 mmol/L (98-107) H 08/28/19 07:45 Carbon Dioxide 30 mmol/L (21-32) 08/28/19 07:45 Anion Gap 5 MMOL/L (8-16) L 08/28/19 07:45 BUN 12.5 mg/dL (7-18) 08/28/19 07:45 Creatinine 0.7 mg/dL (0.55-1.3) 08/28/19 07:45 Est GFR (CKD-EPI)AfAm 116.40 08/28/19 07:45 Est GFR (CKD-EPI)NonAf 100.43 08/28/19 07:45 Random Glucose 84 mg/dL (74-106) 08/28/19 07:45 Calcium 8.8 mg/dL (8.5-10.1) 08/28/19 07:45 Total Bilirubin 1.0 mg/dL (0.2-1) 08/28/19 07:45 AST 30 U/L (15-37) 08/28/19 07:45 ALT 31 U/L (13-61) 08/28/19 07:45 Alkaline Phosphatase 85 U/L (45-117) 08/28/19 07:45 Total Protein 6.3 g/dl (6.4-8.2) L 08/28/19 07:45 Albumin 3.3 g/dl (3.4-5.0) L 08/28/19 07:45 RPR Titer Nonreactive (NONREACTIVE) 08/28/19 07:45 Assessment: 08/29/19 11:56 withdrawal symptom Plan: continue detox librium regimen
[2019-08-29] MEDS: THIAMINE HCL 100 MG TABLET (FP) PO SCH (22:28)
[2019-08-30] MEDS ORDERED: LORazepam 0.5 MG TABLET PO PRN
[2019-08-30] MEDS: LORazepam 0.5 MG TABLET PO SCH ×4 (06:04→22:05)
[2019-08-30] MEDS: PRENATAL VITAMINS W/ FOLIC ACID TABLET (FP) PO SCH (10:40)
--- NOTE | 2019-08-30 11:54 | PN ---
S CIWA - CIWA Score Nausea/Vomitin-No Nausea/No Vomiting Muscle Tremors: 2 Anxiety: 1-Mildly Anxious Agitation: 0-Normal Activity Paroxysmal Sweats: No Perspiration Orientation: 0-Oriented Tacttile Disturbances: 0-None Auditory Disturbances: 0-None Visual Disturbances: 0-None Headache: 0-None Present CIWA-Ar Total Score: 3 BHS Progress Note (SOAP) Subjective: feeling better little anxiety Objective: 08/30/19 11:53 Vital Signs Temperature 98.5 F 08/30/19 08:53 Pulse Rate 65 08/30/19 08:53 Respiratory Rate 18 08/30/19 08:53 Blood Pressure 128/73 08/30/19 08:53 O2 Sat by Pulse Oximetry (%) aaox3 ambulating no acute distress Assessment: 08/30/19 11:54 mild withdrawals Plan: continue detox d/c in am
[2019-08-30] MEDS: THIAMINE HCL 100 MG TABLET (FP) PO SCH (22:05)
[2019-08-30] MEDS: MELATONIN 5 MG TABLETS PO PRN (22:06)
[2019-08-31] MEDS ORDERED: LORazepam 0.5 MG TABLET PO ONE (05:00)
[2019-08-31] MEDS: ACETAMINOPHEN 325 MG TABLET (FP) PO PRN (05:51)
--- NOTE | 2019-08-31 09:19 | DS ---
[facility] Detox Discharge Summary Admission Date: 08/27/19 Discharge Date: 08/31/19 - History Present History: Alcohol Dependence, Cocaine Dependence - Physical Exam Results Vital Signs: Vital Signs Temperature 97.9 F 08/31/19 05:40 Pulse Rate 64 08/31/19 05:40 Respiratory Rate 18 08/31/19 05:40 Blood Pressure 126/75 08/31/19 05:40 O2 Sat by Pulse Oximetry (%) Pertinent Admission Physical Exam Findings: Vital Signs Temperature 97.9 F 08/31/19 05:40 Pulse Rate 64 08/31/19 05:40 Respiratory Rate 18 08/31/19 05:40 Blood Pressure 126/75 08/31/19 05:40 O2 Sat by Pulse Oximetry (%) Laboratory Tests 08/28/19 08/28/19 08/28/19 07:45 07:45 07:45 WBC 6.2 RBC 3.61 L Hgb 12.0 Hct 36.4 MCV 100.6 H MCH 33.3 MCHC 33.1 RDW 13.3 Plt Count 333 MPV 8.2 Sodium 143 Potassium 3.8 Chloride 108 H Carbon Dioxide 30 Anion Gap 5 L BUN 12.5 Creatinine 0.7 Est GFR (CKD-EPI)AfAm 116.40 Est GFR (CKD-EPI)NonAf 100.43 Random Glucose 84 Calcium 8.8 Total Bilirubin 1.0 AST 30 ALT 31 Alkaline Phosphatase 85 Total Protein 6.3 L Albumin 3.3 L RPR Titer Nonreactive aaox3 ambulating no acute distress lungs CTA - Treatment Hospital Course: Detox Protocol Followed, Detoxed Safely, Responded well, Discharged Condition Good, Rehab Referral Accepted - Medication Discharge Medications: Ambulatory Orders Atorvastatin Calcium [Lipitor] 10 mg PO DAILY 09/24/18 Hydrochlorothiazide 25 mg PO DAILY 09/24/18 - Diagnosis (1) Alcohol dependence with uncomplicated withdrawal Current Visit: Yes Status: Chronic (2) Cocaine abuse Current Visit: Yes Status: Chronic (3) Depressed affect Current Visit: Yes Status: Acute (4) Forgetfulness Current Visit: Yes Status: Acute (5) Homeless Current Visit: Yes Status: Acute (6) Poor historian Current Visit: Yes Status: Acute (7) Substance-induced sleep disorder Current Visit: Yes Status: Acute (8) GERD (gastroesophageal reflux disease) Current Visit: Yes Status: Chronic Qualifiers: Esophagitis presence: without esophagitis Qualified Code(s): K21.9 - Gastro-esophageal reflux disease without esophagitis (9) Hypercholesterolemia Current Visit: Yes Status: Chronic (10) Hypertension Current Visit: Yes Status: Chronic Qualifiers: Hypertension type: essential hypertension Qualified Code(s): I10 - Essential (primary) hypertension (11) Nicotine dependence Current Visit: Yes Status: Chronic Qualifiers: Nicotine product type: cigarettes Substance use status: uncomplicated Qualified Code(s): F17.210 - Nicotine dependence, cigarettes, uncomplicated (12) Use of cane as ambulatory aid Current Visit: Yes Status: Chronic (13) History of right hip replacement Current Visit: Yes Status: Resolved (14) Hypokalemia Current Visit: No Status: Acute (15) Insomnia Current Visit: No Status: Acute - AMA Did Patient Leave Against Medical Advice: No
[2019-08-31] MEDS: PRENATAL VITAMINS W/ FOLIC ACID TABLET (FP) PO SCH (10:23)
[2019-08-31 10:42] VITALS: BP 127/68; PULSE 83; TEMP 97.6
== END 2019-08-31 10:45 | disposition home or self-care (01) | DRG 774 ==
LOC: YASAS 13:52 → Y6N 16:35
PROVIDERS: ADMIT Allergy & Immunology; ATTEND Allergy & Immunology
PROC: HZ2ZZZZ Detoxification Services for Substance Abuse Treatment (ICD-10-PCS; principal; 2019-08-27)
DX: F10.230 Alcohol dependence with withdrawal, uncomplicated (principal); F14.20 Cocaine dependence, uncomplicated; F17.210 Nicotine dependence, cigarettes, uncomplicated; F19.282 Other psychoactive substance dependence with psychoactive substance-induced sleep disorder; E87.6 Hypokalemia; E78.00 Pure hypercholesterolemia, unspecified; K21.9 Gastro-esophageal reflux disease without esophagitis; G47.00 Insomnia, unspecified; R45.89 Other symptoms and signs involving emotional state; Z96.641 Presence of right artificial hip joint; Z99.89 Dependence on other enabling machines and devices; Z78.9 Other specified health status; Z88.6 Allergy status to analgesic agent; Z59.0 Homelessness
CPT/HCPCS: 36415; 80053; 85027; 86593; 93005; 93010